=== PATIENT | female | born 1985 | race Caucasian/White ===

== ENCOUNTER → 2020-12-26 16:30 | Outpatient (CLI) | payer OTHER, SELFPAY ==
--- NOTE | 2020-12-26 16:33 | MR_ITS ---
PROCEDURE INFORMATION: Exam: MR Right Lower Extremity Other Than Joint Without Contrast; Foot Exam date and time: 12/26/2020 4:33 PM Age: 35 years old Clinical indication: Pain; Foot; Right; Additional info: Strain of right foot. Twisted ankle [id number] ago. Dorsal and plantar foor pain. Pain when standing. No prior. TECHNIQUE: Imaging protocol: MR of the Right lower extremity without contrast. Exam focused on the foot. COMPARISON: No relevant prior studies available. FINDINGS: Bones and cartilage: No concerning marrow signal alterations. Neurovascular structures are unremarkable. Joint spaces: No joint effusion or any fluid collections. LIGAMENTS: Anterior talofibular ligament: Thickened anterior talofibular from a previous strain injury. Remaining ligaments are intact. Lisfranc ligament: Unremarkable. No evidence of tear. TENDONS: Flexor tendons of foot: Unremarkable. No evidence of tear. Tibialis posterior tendon: Unremarkable as visualized. Peroneal tendons: Unremarkable as visualized. Extensor tendons of foot: Unremarkable. No evidence of tear. Tibialis anterior tendon: Unremarkable as visualized. Tarsal canal (Sinus tarsi): Sinus tarsi is intact. Tarsal tunnel: Unremarkable. Muscles: Muscles are unremarkable. Soft tissues: Tendons are intact. Plantar fascia: Plantar aponeurosis is intact. IMPRESSION: 1. Thickened anterior talofibular from a previous strain injury. 2. No other significant internal derangement.
== END ==
PROVIDERS: Visit Provider Orthopaedic Surgery
DX: S96.911A Strain of unspecified muscle and tendon at ankle and foot level, right foot, initial encounter (principal)
CPT/HCPCS: 73718

== ENCOUNTER 2021-08-01 20:11 | Emergency (ER) | payer MEDICARE, OTHER, SELFPAY ==
[2021-08-01 20:12] VITALS: BP 142/78; PULSE 120; RESP 20; TEMP 37; O2SAT 99; BMI 44.2
[2021-08-01 20:27] LABS: Microscopic, Urine URINE MICROSCOPIC (MICROSCOPIC)
[2021-08-01 20:30] VITALS: BP 142/78; PULSE 129; O2SAT 99
[2021-08-01 20:37] LABS: Appearance,Urine CLEAR (Clear); Bilirubin,Urine Negative (Negative); Blood, Urine 1+ (Negative); Color,Urine YELLOW (Yellow); Glucose,Urine (UA) Negative (Negative); Ketones,Urine Negative (Negative); Leukocyte Esterase,Urine 2+ (Negative); Nitrate,Urine Negative (Negative); PH,Urine 5.5 (5.0-8.5); Protein,Urine Negative (Negative); Urobilinogen,Urine 0.2 EU/dl (0.2)
--- NOTE | 2021-08-01 20:51 | CT_ITS ---
PROCEDURE INFORMATION: Exam: CT Head Without Contrast Exam date and time: 08/01/2021 8:51 PM Age: 35 years old Clinical indication: Pain; Headache not specified TECHNIQUE: Imaging protocol: Computed tomography of the head without contrast. Radiation optimization: All CT scans at this facility use at least one of these dose optimization techniques: automated exposure control; mA and/or kV adjustment per patient size (includes targeted exams where dose is matched to clinical indication); or iterative reconstruction. COMPARISON: No relevant prior studies available. FINDINGS: Brain: Normal. No hemorrhage. Unremarkable white matter. No mass effect. Cerebral ventricles: No ventriculomegaly. Paranasal sinuses: Visualized sinuses are unremarkable. No fluid levels. Mastoid air cells: Visualized mastoid air cells are well aerated. Bones/joints: Unremarkable. No acute fracture. Soft tissues: Unremarkable. IMPRESSION: No acute intracranial abnormality.
--- NOTE | 2021-08-01 20:51 | CT_ITS ---
PROCEDURE INFORMATION: Exam: CT Cervical Spine Without Contrast Exam date and time: 08/01/2021 8:51 PM Age: 35 years old Clinical indication: Pain; Other: Headache; Patient HX: PT has port in for meds for crohns disease TECHNIQUE: Imaging protocol: Computed tomography images of the cervical spine without contrast. Radiation optimization: All CT scans at this facility use at least one of these dose optimization techniques: automated exposure control; mA and/or kV adjustment per patient size (includes targeted exams where dose is matched to clinical indication); or iterative reconstruction. COMPARISON: CT HEAD/BRAIN WO CON 08/01/2021 9:05 PM FINDINGS: Vertebrae: No acute fracture. Normal alignment. C2-C3: No significant disc protrusion. No severe spinal canal stenosis. No significant neural foraminal narrowing. C3-C4: No significant disc protrusion. No severe spinal canal stenosis. No significant neural foraminal narrowing. C4-C5: No significant disc protrusion. No severe spinal canal stenosis. No significant neural foraminal narrowing. C5-C6: No significant disc protrusion. No severe spinal canal stenosis. No significant neural foraminal narrowing. C6-C7: No significant disc protrusion. No severe spinal canal stenosis. No significant neural foraminal narrowing. C7-T1: No significant disc protrusion. No severe spinal canal stenosis. No significant neural foraminal narrowing. Soft tissues: Unremarkable. Lungs: Lung apices are normal. IMPRESSION: No acute findings.
[2021-08-01 20:56] LABS: Urine Pregnancy, HCG Qual. Negative (Negative)
[2021-08-01 20:59] LABS: Bacteria,Urine Trace /lpf
[2021-08-01 20:59] LABS: Basophils % 0.5 % (0.1-2.0); Eosinophils # 0.2 K/mm3 (0.0-0.4); Eosinophils % 2.4 % (0.1-12.0); Hematocrit 42.3 % (37.0-47.0); Hemoglobin 13.8 g/dL (12.2-16.2); Lymphocytes # 1.7 K/mm3 (0.7-4.5); Mean Corpuscular HGB Conc 32.5 g/dL (31.8-35.4); Mean Corpuscular Hemoglobin 32.3 pg (27.0-31.2); Mean Corpuscular Volume 99.4 fl (81-99); Mean Platelet Volume 7.6 fl (7.4-10.4); Monocytes # 0.4 K/mm3 (0.1-1.0); Monocytes % 4.9 % (1.7-9.3); Neutrophils # 6.5 K/mm3 (1.8-7.8); Neutrophils % 73.1 % (37.0-80.0); Platelet Count 309 K/mm3 (142-424); Red Blood Count 4.25 M/mm3 (4.20-5.40); White Blood Count 8.9 K/mm3 (4.8-10.8)
[2021-08-01 21:12] LABS: Alanine Aminotransferase 33 U/L (12-78); Albumin Level 4.6 g/dl (3.5-5.0); Albumin/Globulin Ratio 1.5 (1.1-1.8); Alkaline Phosphatase 54 U/L (38-126); Anion Gap 9.9 mEq/L (5-15); Aspartate Amino Transferase 33 U/L (14-36); Bilirubin,Total 0.7 mg/dl (0.2-1.3); Blood Urea Nitrogen 12 mg/dl (7-17); Calcium 9.3 mg/dl (8.4-10.2); Carbon Dioxide 26 mmol/L (22.0-30.0); Chloride 105 mmol/L (98-107); Creatinine Clearance Estimated 114 mL/min (50-200); Estimated Glomerular Filt Rate 114 ml/min (>60); GFR (African American) 138 ML/MIN (>60); Glucose 151 mg/dl (74-100); Potassium 3.9 mmoL/L (3.5-5.1); Sodium 137 mmol/L (136-145); Total Protein,Serum 7.6 g/dl (6.3-8.2)
[2021-08-01 21:17] LABS: C-Reactive Protein 1.4 mg/L (0-4)
[2021-08-01 21:30] LABS: Erythrocyte Sedimentation Rate 16 mm/hr (0-20)
[2021-08-01 21:31] VITALS: BP 169/90; PULSE 153; O2SAT 99
[2021-08-01 21:31] LABS: Procalcitonin 0.051 ng/mL (0.0-2.0)
--- NOTE | 2021-08-01 22:01 | HMH.EDHA ---
ED Disposition Clinical Impression: Headache Qualifiers: Headache type: unspecified Headache chronicity pattern: acute headache Intractability: not intractable Qualified Code(s): R51.9 - Headache, unspecified Disposition: Home, Self-Care Condition on Discharge: Good Instructions: DI for Headache Additional Instructions: call pcp for follow up and urine culture results Referrals: Donte Prieto [Primary Care Provider] - - Critical Care Critical Care Time: No Attestation: On 08/01/21, the high probability of a clinically significant, sudden or life threatening deterioration of the following system(s) required my full and direct attention, intervention and personal management. The time I documented below is in addition to time spent performing reported procedures but includes the following listed in this critical care notation. Medical Decision Making - Medical Records Medical records reviewed: Yes: I reviewed the patient's medical records. - Lobo Inquiry Pt receiving controlled substance: No Vital Signs: 08/01/21 20:12 Temperature 98.6 F Temperature Source Oral Pulse Rate [Apical] 120 H Respiratory Rate 20 Blood Pressure [Right Arm] 142/78 H Blood Pressure Mean [Right Arm] 99 Blood Pressure Source [Right Arm] Automatic Cuff Blood Pressure Position [Right Arm] Sitting 02 Sat by Pulse Oximetry 99 Oxygen Delivery Method Room Air - Lab Data Lab results reviewed: Yes: I reviewed the patient's lab results. Lab Results 08/01/21 20:20: Urine Color Yellow, Urine Appearance Clear, Urine pH 5.5, Ur Specific [place] 1.020, Urine Protein Negative, Urine Glucose (UA) Negative, Urine Ketones Negative, Urine Blood 1+, Urine Nitrate Negative, Urine Bilirubin Negative, Urine Urobilinogen 0.2, Ur Leukocyte Esterase 2+ A, Urine RBC 5-10, Urine WBC 5-10, Ur Squamous Epith Cells 10-20, Urine Bacteria Trace 08/01/21 20:20: Urine HCG, Qual Negative 08/01/21 20:51: WBC 8.9, RBC 4.25, Hgb 13.8, Hct 42.3, MCV 99.4 H, MCH 32.3 H, MCHC 32.5, RDW 12.0, Plt Count 309, MPV 7.6, Neut % (Auto) 73.1, Lymph % (Auto) 19.0, [place] % (Auto) 4.9, Eos % (Auto) 2.4, Baso % (Auto) 0.5, Neut # (Auto) 6.5, Lymph # (Auto) 1.7, [place] # (Auto) 0.4, Eos # (Auto) 0.2, Baso # (Auto) 0.0, ESR 16 08/01/21 20:51: Sodium 137, Potassium 3.9, Chloride 105, Carbon Dioxide 26, Anion Gap 9.9, BUN 12, Creatinine 0.60, Estimated Creat Clear 114, Estimated GFR 114, Est GFR ( Amer) 138, Glucose 151 H, Calcium 9.3, Total Bilirubin 0.7, AST 33, ALT 33, Alkaline Phosphatase 54, C-Reactive Protein 1.4, Total Protein 7.6, Albumin 4.6, Globulin 3.0, Albumin/Globulin Ratio 1.5 08/01/21 20:51: Procalcitonin 0.051 Result diagrams: 08/01/21 20:51 08/01/21 20:51 Orders (Tests/Meds): ED MEDICATIONS Discontinued Medications Generic Name Dose Route Start Last Admin Trade Name Gustavoq PRN Reason Stop Dose Admin Diphenhydramine HCl 50 mg 08/01/21 20:52 08/01/21 21:07 Diphenhydramine 50mg/Ml Vial IV 08/01/21 20:53 50 mg ONCE ONE Administration Sodium Chloride 1,000 mls @ 999 mls/hr 08/01/21 21:00 08/01/21 21:08 Sod Chlor 0.9% 1000ml Bag IV 08/01/21 22:00 999 mls/hr .Q1H1M NU Administration Ketorolac Tromethamine 30 mg 08/01/21 20:52 08/01/21 21:08 Ketorolac 30mg/Ml Vial IV 08/01/21 20:53 30 mg ONCE ONE Administration Methylprednisolone Sodium Succinate 125 mg 08/01/21 20:52 08/01/21 21:08 Methylprednisolone Sod Succ 125mg Vial IV 08/01/21 20:53 125 mg ONCE ONE Administration Metoclopramide HCl 10 mg 08/01/21 20:52 08/01/21 21:07 Metoclopramide Hcl 10mg/2ml Vial IVP 08/01/21 20:53 10 mg ONCE ONE Administration Promethazine HCl 25 mg 08/01/21 20:52 08/01/21 21:08 Promethazine Hcl 25mg/Ml 1ml Vial IV 08/01/21 20:53 25 mg ONCE ONE Administration Sodium Chloride 25 ml 08/01/21 20:52 Sodium Chloride 0.9% 25ml Bag IV 08/01/21 20:53 ONCE ONE ORDERS Category Date Time Status Urine Cultur
[2021-08-01 22:09] VITALS: BP 145/80; PULSE 99; RESP 17; TEMP 36.8; O2SAT 99
== END 2021-08-01 22:25 | disposition home or self-care (01) ==
PROVIDERS: Emergency Provider Emergency Medicine; PCP Family Medicine
DX: R51.9 Headache, unspecified (principal); R42 Dizziness and giddiness; R82.90 Unspecified abnormal findings in urine
CPT/HCPCS: 70450; 72125; 80053; 81001; 81025; 84145; 85025; 85651; 86140; 87086; 87088; 87186; 96365; 96367; 96375; 99283; 99284

== ENCOUNTER → 2021-11-13 10:16 | Outpatient (CLI) | payer MEDICARE, OTHER, SELFPAY ==
[2021-11-13 10:43] LABS: Basophils # 0.1 K/mm3 (0-0.2); Basophils % 0.5 % (0.1-2.0); Eosinophils # 0.2 K/mm3 (0.0-0.4); Eosinophils % 2.2 % (0.1-12.0); Hematocrit 34.9 % (37.0-47.0); Hemoglobin 11.3 g/dL (12.2-16.2); Lymphocytes # 1.8 K/mm3 (0.7-4.5); Lymphocytes % 18.5 % (10-50); Mean Corpuscular HGB Conc 32.5 g/dL (31.8-35.4); Mean Corpuscular Hemoglobin 33.1 pg (27.0-31.2); Mean Corpuscular Volume 102.1 fl (81-99); Mean Platelet Volume 9.4 fl (7.4-10.4); Monocytes # 0.5 K/mm3 (0.1-1.0); Monocytes % 4.6 % (1.7-9.3); Neutrophils # 7.2 K/mm3 (1.8-7.8); Neutrophils % 74.1 % (37.0-80.0); Platelet Count 379 K/mm3 (142-424); Red Blood Count 3.42 M/mm3 (4.20-5.40); Red Cell Distribution Width 13.1 % (11.5-17.5); White Blood Count 9.7 K/mm3 (4.8-10.8)
[2021-11-14 06:12] LABS: HIV Screen 4th Generation wRfx Non Reactive (Non Reactive)
[2021-11-14 07:22] LABS: Rubella Antibodies, IgG 1.03 index (Immune >0.99)
[2021-11-14 08:32] LABS: Progesterone 9.5 ng/mL (.)
[2021-11-14 09:28] LABS: Hepatitis B Surface Antigen Negative (Negative); Hepatitis C Antibody <0.1 s/co ratio (0.0-0.9)
[2021-11-14 11:12] LABS: Rapid Plasma Reagin Ab Titer Non Reactive (NonRea<1:1)
== END ==
PROVIDERS: PCP Family Medicine; Visit Provider Obstetrics & Gynecology
DX: Z3A.08 8 weeks gestation of pregnancy (principal); O20.0 Threatened abortion; R51.9 Headache, unspecified
CPT/HCPCS: 36415; 84144; 84702; 85025; 86592; 86703; 86762; 86850; 87340; 87380; G0432

== ENCOUNTER → 2021-11-17 09:43 | Outpatient (CLI) | payer MEDICARE, OTHER, SELFPAY ==
--- NOTE | 2021-11-17 09:43 | US_ITS ---
FINAL REPORT CLINICAL HISTORY: US OB before 14wks for dates/Confirmation FINDINGS: Sonographic images of the pelvis were obtained. A single, living intrauterine is noted. A yolk sac is present and measures 0.51 cm. [place] to rump length measures 2.35 cm which corresponds to 9 weeks 1 day gestation. Heartbeat is identified and measures 170 beats per minute. There is a 3.6 cm right ovarian cyst. The left ovary is within normal limits. 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 IMPRESSION: Single, living, intrauterine gestation with 9 weeks 1 day ultrasound age. Reviewed, Interpreted and Dictated by Michael Rosa III, MD Transcribed by Luanne Valdez Authenticated and [facility]
== END ==
PROVIDERS: PCP Nurse Practitioner; Visit Provider Obstetrics & Gynecology
DX: O26.841 Uterine size-date discrepancy, first trimester (principal)
CPT/HCPCS: 76801

== ENCOUNTER 2021-12-26 07:13 | Emergency (ER) | payer MEDICARE, OTHER, SELFPAY ==
[2021-12-26 07:14] VITALS: BP 116/75; PULSE 98; RESP 16; TEMP 37.1; O2SAT 98; BMI 42.7
[2021-12-26 07:22] VITALS: BMI 29.9
[2021-12-26 07:23] VITALS: BP 116/75; PULSE 90; RESP 17; O2SAT 99
[2021-12-26 07:29] LABS: Appearance,Urine SL CLOUDY (Clear); Bilirubin,Urine Negative (Negative); Blood, Urine 3+ (Negative); Color,Urine YELLOW (Yellow); Glucose,Urine (UA) Negative (Negative); Ketones,Urine Negative (Negative); Leukocyte Esterase,Urine 3+ (Negative); Microscopic, Urine URINE MICROSCOPIC (MICROSCOPIC); Nitrate,Urine Negative (Negative); PH,Urine 6.5 (5.0-8.5); Protein,Urine 1+ (Negative); Specific Gravity, Urine 1.025 (1.005-1.030)
[2021-12-26 07:41] LABS: Bacteria,Urine 1+ /lpf; RBC,Urine 20-50 #/hpf (0-3)
--- NOTE | 2021-12-26 07:44 | PC.NURSE ---
MD at bedside assessing pt. Nurse at bedside preparing to access port.
--- NOTE | 2021-12-26 07:45 | PC.NURSE ---
Paging Dr Beatty at this time.
--- NOTE | 2021-12-26 07:46 | PC.NURSE ---
speaking with Dr Beatty at this time.
--- NOTE | 2021-12-26 07:51 | HMH.EDPREG ---
ED Disposition Clinical Impression: Rh negative state in antepartum period Qualifiers: Weeks of gestation: 13 weeks Qualified Code(s): Z3A.13 - 13 weeks gestation of UTI (urinary tract infection) during Qualifiers: Trimester: second trimester Qualified Code(s): O23.42 - Unspecified infection of urinary tract in , second trimester Disposition: Home, Self-Care Condition on Discharge: Good Instructions: DI for Vaginal Bleeding During Additional Instructions: use meds and call ob on tuesday for urine culture Prescriptions: cephALEXin [cephALEXin 500mg capsule*] 500 mg PO TID #30 cap Transmission Status: Pending to [facility] Referrals: Donte Preito [Primary Care Provider] - - Critical Care Critical Care Time: No Attestation: On , the high probability of a clinically significant, sudden or life threatening deterioration of the following system(s) required my full and direct attention, intervention and personal management. The time I documented below is in addition to time spent performing reported procedures but includes the following listed in this critical care notation. Medical Decision Making - Medical Records Medical records reviewed: Yes: I reviewed the patient's medical records. - Lobo Inquiry Pt receiving controlled substance: No Vital Signs: 12/26/21 07:23 Pulse Rate 90 Respiratory Rate 17 Blood Pressure 116/75 Blood Pressure Mean 88 02 Sat by Pulse Oximetry 99 Oxygen Delivery Method Room Air - Lab Data Lab results reviewed: Yes: I reviewed the patient's lab results. Lab Results 12/26/21 07:18: Urine Color Yellow, Urine Appearance Sl cloudy, Urine pH 6.5, Ur Specific [place] 1.025, Urine Protein 1+, Urine Glucose (UA) Negative, Urine Ketones Negative, Urine Blood 3+, Urine Nitrate Negative, Urine Bilirubin Negative, Urine Urobilinogen 2.0, Ur Leukocyte Esterase 3+ A, Urine RBC 20-50, Urine WBC 10-20, Ur Squamous Epith Cells 5-10, Urine Bacteria 1+ Orders (Tests/Meds): ED MEDICATIONS Generic Name Dose Route Start Last Admin Trade Name Freq PRN Reason Stop Dose Admin Sodium Chloride 1,000 mls @ 999 mls/hr 12/26/21 07:30 Sod Chlor 0.9% 1000ml Bag IV 12/26/21 08:30 .Q1H1M NU Rho Immune Globulin 0 unit 07/16/22 07:22 Rho(D) Immune Globulin 1,500 Unit Syringe IM 01/25/22 07:21 NEEDED PRN For Rh Pre/ scrn resu ORDERS Category Date Time Status Rhogam Stat BBK 12/26/21 07:22 Ordered C-Reactive Protein Stat Lab 12/26/21 07:22 Ordered Complete Blood Count Auto Diff Stat Lab 12/26/21 07:22 Ordered Comprehensive Metabolic Panel Stat Lab 12/26/21 07:22 Ordered Erythrocyte Sedimentation Rate Stat Lab 12/26/21 07:22 Ordered Procalcitonin Stat Lab 12/26/21 07:22 Ordered Urine Culture Stat Micro 12/26/21 07:18 Received - Physician Consults Physician Consulted: rhonda Reason -: Pt condition Medical Decision Narrative: has vag bleeeding 13 weeks preg with aneg blood type and has uti HPI - General Stated complaint: lt abd pain, blood in urine, 14 weeks prg Time Seen by Provider: 12/26/21 07:40 Mode of Arrival: Ambulatory Source of Information: Patient, Medical Record Limitations: No Limitations - History of Present Illness HPI Narrative: pt with spotting this am on tissue - pt is 14 weeks MD Complaint: vaginal bleeding Onset (ago): hour(s) Consistency: intermittent Severity: mild Associated symptoms: denies other symptoms Vaginal bleeding: other (spotting on tissue) : Yes care: followed by OB - Related Data Blood Type: A (-) negative Home Medications Medication Instructions Recorded Confirmed Amitriptyline HCl [Elavil 50mg 50 mg PO DAILY 08/01/21 12/26/21 tablet] Metoprolol Succinate [Metoprolol 25 mg PO DAILY 08/01/21 12/26/21 Succinate 25mg Tablet*] buspirone 30 mg tablet
[2021-12-26 07:52] VITALS: BP 129/72; PULSE 88; RESP 16; O2SAT 98
--- NOTE | 2021-12-26 08:00 | PC.NURSE ---
PT GIVEN WARM BLANKET
[2021-12-26 08:30] VITALS: BP 117/76; PULSE 84; RESP 17; O2SAT 100
[2021-12-26 08:47] LABS: Basophils % 0.7 % (0.1-2.0); Eosinophils # 0.1 K/mm3 (0.0-0.4); Eosinophils % 1.8 % (0.1-12.0); Hematocrit 33.2 % (37.0-47.0); Hemoglobin 10.5 g/dL (12.2-16.2); Lymphocytes # 1.9 K/mm3 (0.7-4.5); Lymphocytes % 28.4 % (10-50); Mean Corpuscular HGB Conc 31.6 g/dL (31.8-35.4); Mean Corpuscular Hemoglobin 31.7 pg (27.0-31.2); Mean Corpuscular Volume 100.2 fl (81-99); Mean Platelet Volume 9.5 fl (7.4-10.4); Monocytes # 0.5 K/mm3 (0.1-1.0); Monocytes % 7.6 % (1.7-9.3); Neutrophils # 4.1 K/mm3 (1.8-7.8); Neutrophils % 61.5 % (37.0-80.0); Platelet Count 271 K/mm3 (142-424); Red Blood Count 3.31 M/mm3 (4.20-5.40); Red Cell Distribution Width 13.3 % (11.5-17.5); White Blood Count 6.6 K/mm3 (4.8-10.8)
[2021-12-26 08:53] LABS: Chloride 106 mmol/L (98-107)
[2021-12-26 08:54] LABS: Potassium 3.4 mmoL/L (3.5-5.1); Sodium 135 mmol/L (136-145)
[2021-12-26 08:56] LABS: Alanine Aminotransferase 29 U/L (12-78); Albumin Level 3.8 g/dl (3.5-5.0); Alkaline Phosphatase 63 U/L (38-126); Aspartate Amino Transferase 34 U/L (14-36); Blood Urea Nitrogen 7 mg/dl (7-17); Creatinine Clearance Estimated 202 mL/min (50-200); Estimated Glomerular Filt Rate 140 ml/min (>60); GFR (African American) 170 ML/MIN (>60)
[2021-12-26 08:57] LABS: Albumin/Globulin Ratio 1.4 (1.1-1.8); Anion Gap 8.4 mEq/L (5-15); Calcium 9.1 mg/dl (8.4-10.2); Carbon Dioxide 24 mmol/L (22.0-30.0); Globulin 2.8 g/dL (1.3-3.2); Glucose 89 mg/dl (74-100); Total Protein,Serum 6.6 g/dl (6.3-8.2)
[2021-12-26 09:00] VITALS: BP 119/71; PULSE 86; RESP 16; O2SAT 99
[2021-12-26 09:02] LABS: C-Reactive Protein 3.8 mg/L (0-4)
[2021-12-26 09:18] LABS: Erythrocyte Sedimentation Rate 38 mm/hr (0-20)
--- NOTE | 2021-12-26 09:22 | PC.NURSE ---
PT UPDATED ON PLAN OF CARE
[2021-12-26 09:24] LABS: Procalcitonin 0.048 ng/mL (0.0-2.0)
--- NOTE | 2021-12-26 10:00 | PC.NURSE ---
PORT A CATH DEACCESSED
[2021-12-26 10:05] VITALS: BP 116/75; PULSE 92; RESP 16; TEMP 36.6; O2SAT 98
== END 2021-12-26 10:07 | disposition home or self-care (01) ==
PROVIDERS: Emergency Provider Emergency Medicine; PCP Family Medicine
DX: O23.41 Unspecified infection of urinary tract in pregnancy, first trimester (principal); N39.0 Urinary tract infection, site not specified; Z3A.13 13 weeks gestation of pregnancy; O36.0910 Maternal care for other rhesus isoimmunization, first trimester, not applicable or unspecified
CPT/HCPCS: 80053; 81001; 84145; 85025; 85651; 86140; 87086; 96372; 99283; J1642; J2790

== ENCOUNTER → 2022-02-04 06:18 | Outpatient (CLI) | payer MEDICARE, OTHER, SELFPAY | PROVIDERS: Visit Provider Obstetrics & Gynecology | DX: N39.0 Urinary tract infection, site not specified (principal) | CPT/HCPCS: 87086 ==

== ENCOUNTER 2022-04-05 07:26 | Outpatient (CLI) | payer MEDICARE, OTHER, SELFPAY ==
[2022-04-05 08:05] LABS: Basophils # 0.1 K/mm3 (0-0.2); Basophils % 0.9 % (0.1-2.0); Eosinophils # 0.2 K/mm3 (0.0-0.4); Hematocrit 34.7 % (37.0-47.0); Lymphocytes # 1.7 K/mm3 (0.7-4.5); Lymphocytes % 19.8 % (10-50); Mean Corpuscular HGB Conc 31.5 g/dL (31.8-35.4); Mean Corpuscular Hemoglobin 32.5 pg (27.0-31.2); Mean Platelet Volume 8.8 fl (7.4-10.4); Monocytes # 0.5 K/mm3 (0.1-1.0); Monocytes % 5.1 % (1.7-9.3); Neutrophils # 6.3 K/mm3 (1.8-7.8); Neutrophils % 72.2 % (37.0-80.0); Platelet Count 279 K/mm3 (142-424); Red Blood Count 3.37 M/mm3 (4.20-5.40); Red Cell Distribution Width 13.5 % (11.5-17.5); White Blood Count 8.8 K/mm3 (4.8-10.8)
[2022-04-05 08:14] LABS: Glucose,Fasting 79 mg/dl (74-100)
[2022-04-05 09:36] VITALS: BP 121/71; PULSE 81; RESP 18; O2SAT 99
[2022-04-05 09:58] LABS: Glucose 1 Hour 137 mg/dL (74-100)
== END 2022-04-05 09:50 | disposition home or self-care (01) ==
PROVIDERS: Visit Provider Obstetrics & Gynecology
DX: R51.9 Headache, unspecified (principal); Z34.90 Encounter for supervision of normal pregnancy, unspecified, unspecified trimester
CPT/HCPCS: 36415; 82951; 85025; 96372; J2790

== ENCOUNTER → 2022-04-09 06:58 | Outpatient (CLI) | payer MEDICARE, OTHER, SELFPAY ==
[2022-04-09 09:20] LABS: Glucose 1 Hour 134 mg/dL (74-100); Glucose,Fasting 85 mg/dl (74-100)
[2022-04-09 10:26] LABS: Glucose 2 Hour 146 mg/dL (74-100)
[2022-04-09 12:26] LABS: Glucose 3 Hour 149 mg/dL (74-100)
== END ==
PROVIDERS: PCP Family Medicine; Visit Provider Obstetrics & Gynecology
DX: Z3A.28 28 weeks gestation of pregnancy (principal); O99.810 Abnormal glucose complicating pregnancy
CPT/HCPCS: 36415; 82951

== ENCOUNTER → 2022-04-14 08:30 | Outpatient (CLI) | payer MEDICARE, OTHER, SELFPAY | PROVIDERS: Visit Provider Obstetrics & Gynecology | DX: N39.0 Urinary tract infection, site not specified (principal) | CPT/HCPCS: 87086 ==

== ENCOUNTER 2022-05-10 20:37 | Emergency (ER) | payer MEDICARE, OTHER, SELFPAY ==
--- NOTE | 2022-05-10 22:04 | ECG_ITS ---
APPROVED REPORT Exam: Resting ECG HR:96 bpm ECG Measurements Heart Rate 96 AXES RI 174 P 29 QRSd 105 QRS 57 QT 367 T 40 QTc 420 Conclusion SINUS RHYTHM NONSPECIFIC T-WAVE ABNORMALITY BORDERLINE ECG UNCONFIRMED REPORT Electronically signed by : Van Thomas MD 05/11/2022 20:19:30
[2022-05-10 22:23] VITALS: BP 145/86; PULSE 78; RESP 16; TEMP 36.6; O2SAT 98
--- NOTE | 2022-05-10 22:29 | PC.NURSE ---
Pt arrives to ER with c/o of left arm pain. Initial workup included an EKG which indicated normal sinus rhythm. During triage patient was asked if she has had any recent injury to her arm as it appears sore in her bicep, patient remembered during triage that she had slept on her left arm last night and at one point woke up with her left arm aching and further exasperated that injury while holding her daughter today. Patient decided to leave without being seen. Advised patient that doing a work up wasn't a problem and we could check a few things just in case but patient remained adamant that she did not wish to be seen, that she was just embarrassed that she hadnt thought of it. Advised patient to return to er if needed and follow up with her pcp.
== END 2022-05-10 22:27 | disposition left against medical advice (07) ==
LOC: ER 21:37
PROVIDERS: Emergency Provider Emergency Medicine; PCP Family Medicine
DX: M79.602 Pain in left arm; Z53.21 Procedure and treatment not carried out due to patient leaving prior to being seen by health care provider
CPT/HCPCS: 93005

== ENCOUNTER 2022-05-27 15:12 | Outpatient (CLI) | payer MEDICARE, OTHER, SELFPAY ==
[2022-05-27 15:18] VITALS: BMI 42.5
[2022-05-27 15:51] LABS: Basophils # 0.1 K/mm3 (0-0.2); Basophils % 0.8 % (0.1-2.0); Eosinophils # 0.1 K/mm3 (0.0-0.4); Eosinophils % 1.8 % (0.1-12.0); Hematocrit 30.5 % (37.0-47.0); Hemoglobin 9.6 g/dL (12.2-16.2); Lymphocytes # 1.8 K/mm3 (0.7-4.5); Lymphocytes % 23.2 % (10-50); Mean Corpuscular HGB Conc 31.5 g/dL (31.8-35.4); Mean Corpuscular Hemoglobin 29.6 pg (27.0-31.2); Mean Platelet Volume 7.6 fl (7.4-10.4); Monocytes # 0.4 K/mm3 (0.1-1.0); Monocytes % 5.3 % (1.7-9.3); Neutrophils # 5.4 K/mm3 (1.8-7.8); Platelet Count 370 K/mm3 (142-424); Red Blood Count 3.25 M/mm3 (4.20-5.40); Red Cell Distribution Width 15.2 % (11.5-17.5); White Blood Count 7.9 K/mm3 (4.8-10.8)
[2022-05-27 15:55] LABS: Iron 42 ug/dL (37-170)
[2022-05-27 16:04] LABS: Total Iron Binding Capacity 382 ug/dL (265-497)
[2022-05-27 16:30] LABS: Ferritin 25.6 ng/ml (6.24-137)
== END 2022-05-27 15:36 | disposition home or self-care (01) ==
LOC: INF 15:14
PROVIDERS: Visit Provider Internal Medicine Medical Oncology
DX: D64.9 Anemia, unspecified (principal); Z45.2 Encounter for adjustment and management of vascular access device
CPT/HCPCS: 36591; 82728; 83540; 83550; 85025; J1642